=== PATIENT | male | born 1985 | race Caucasian/White ===

== ENCOUNTER 2020-01-03 17:54 | Emergency (ER) | payer OTHER ==
[~2020-01-03] VITALS: Ht 170.2 cm; Wt 125.0 kg
[2020-01-03 18:35] VITALS: BP 129/94
[2020-01-03] MEDS ORDERED: TAMIFLU 75MG75 MG PO (20:01)
[2020-01-03 20:05] VITALS: TEMP 100
[2020-01-03 20:36] VITALS: PULSE 111
== END 2020-01-03 20:36 | disposition home or self-care (01) ==
LOC: COL.ER 17:54
DX: J10.1 Influenza due to other identified influenza virus with other respiratory manifestations (principal)

== ENCOUNTER 2020-01-08 13:12 | Inpatient (IN) | payer OTHER ==
[2020-01-08] VITALS (122 sets, daily range): BP systolic 127–130; BP diastolic 74–97; PULSE 127–136; TEMP 98–98.2; O2SAT 67–100
[~2020-01-08] VITALS: Ht 170.2 cm; Wt 134.8 kg
[~2020-01-08 13:12] MED LIST: TAMIFLU 75MG75 MG PO
[2020-01-08 16:00] LABS: HEMATOCRIT 47.2 % (42.0-52.0); HEMOGLOBIN 16.2 g/dl (13.5-18.0); MEAN CELL VOLUME 86 fl (80.0-100.0); MEAN CORPUSCULAR HEMOGLOBIN 29 pg (27.0-31.0); MEAN CORPUSCULAR HGB CONC 34 g/dl (33.0-37.0); MEAN PLATELET VOLUME 12.1 fl (7.4-10.4); PLATELET COUNT 290 K/mm3 (130-400); RED BLOOD COUNT 5.51 M/mm3 (4.20-5.60); REDCELL DISTRIBUTION WIDTH-CV 13.5 % (11.5-14.5)
[2020-01-08 16:02] LABS: ALANINE AMINOTRANSFERASE 38 U/L (21-72); ALBUMIN 3.6 gm/dL (3.5-5.0); ALKALINE PHOSPHATASE 127 U/L (50-136); ANION GAP 17 mmol/L (7-16); AST,SGOT 113 U/L (15-37); BILIRUBIN,TOTAL 1.6 mg/dL (0.0-1.0); BLOOD UREA NITROGEN 42 mg/dL (9-20); CALCIUM 9.3 mg/dL (8.4-10.2); CARBON DIOXIDE 22 mmol/L (22-30); CHLORIDE 97 mmol/L (98-107); CREATININE, serum 2.52 (0.66-1.25); GLUCOSE 128 mg/dL (74-106); LIPASE 18 U/L (23-300); POTASSIUM 3.9 mmol/L (3.4-5.0); SODIUM 136 mmol/L (137-145); TOTAL PROTEIN 7.7 gm/dL (6.4-8.2)
[2020-01-08 16:20] LABS: TROPONIN-I < 0.012 ng/mL (0.000-0.035)
--- NOTE | 2020-01-08 17:40 | NUR ---
REPORT RECIEVED FROM MONAE ACSTRO FROM ED DEPT.
[2020-01-08 20:37] LABS: BAND 13 % (0-10); LYMPHOCYTE 11 % (20.0-51.0); NEUTROPHILS 76 % (42.0-75.2)
[2020-01-08 20:38] LABS: PLATELET ESTIMATE NORMAL (NORMAL)
[2020-01-08 20:40] LABS: TEAR DROP CELLS 1+
[2020-01-09] VITALS: BP 143/85; PULSE 122; TEMP 98.2
--- NOTE | 2020-01-09 03:48 | NUR ---
Report given to MATTHEW Gudino.
--- NOTE | 2020-01-09 03:50 | NUR ---
Bedside report received from MATTHEW Canas. Patient sitting up in chair watching TV. Requests more water, provided. Assessment complete with no changes from previous exams. Patient has complaints of the same 2/10 pain, but does not request any medication. Patient has no further needs at this time. Vitals remain stable. Will continue to monitor.
[2020-01-09 04:00] VITALS: BP 148/86; PULSE 119; TEMP 98.4
[2020-01-09 06:16] LABS: HEMATOCRIT 37.3 % (42.0-52.0); MEAN CELL VOLUME 89 fl (80.0-100.0); MEAN CORPUSCULAR HEMOGLOBIN 29 pg (27.0-31.0); MEAN CORPUSCULAR HGB CONC 33 g/dl (33.0-37.0); MEAN PLATELET VOLUME 11.7 fl (7.4-10.4); PLATELET COUNT 285 K/mm3 (130-400); REDCELL DISTRIBUTION WIDTH-CV 14.1 % (11.5-14.5)
[2020-01-09 06:20] LABS: HEMOGLOBIN 12.3 g/dl (13.5-18.0)
[2020-01-09 06:22] LABS: CALCIUM 7.7 mg/dL (8.4-10.2); CREATININE, serum 2.74 (0.66-1.25); POTASSIUM 3.6 mmol/L (3.4-5.0)
[2020-01-09 07:09] LABS: BAND 25 % (0-10); BURR CELLS 1+; LYMPHOCYTE 9 % (20.0-51.0); NEUTROPHILS 64 % (42.0-75.2); POIKILOCYTOSIS 1+
--- NOTE | 2020-01-09 07:10 | NUR ---
Bedside report given to MATTHEW De La Torre
[2020-01-09 08:00] VITALS: BP 128/87; PULSE 121; TEMP 99
[2020-01-09 12:00] VITALS: BP 115/84; PULSE 110; TEMP 98
--- NOTE | 2020-01-09 12:52 | NUR ---
PT ANXIOUS ABOUT PICC LINE AND LAYING IN BED. PRN ATIVAN ORDERED AND GIVEN. PT BECAME TACHYCARDIC DURING PICC LINE PLACEMENT. ONCE PICC LINE COMPLETED PT BACK TO CHAIR AND STATING STILL FEELING VERY ANXIOUS. PT STILL TACHYCARDIC UP TO 150'S OTHER VSS. NOTIFIED JONO GONZALEZ. ORDERS RECEIVED FOR ATIVAN AND EKG. EKG SHOWING AFIB. JONO GONZALEZ AND NOTIFIED. ORDER RECEIVED FOR IV METOPROLOL NOW AND ADDITONAL DOSE IN [address] CALLED TO HOLD OFF ON CHEST CT FOR NOW. PT UPDATED ON PLAN,
--- NOTE | 2020-01-09 13:14 | NUR ---
Vancomycin Initial Dosing Pharmacy Note Ordering provider: Rocío Dean MD Indication/duration: PNA, 7 days Relevant comorbidities: LABS: SCr 2.74, CrCl~44, GFR 27 Recommendation: Will start Vancomycin 2 gm IV q24h. Pharmacy will continue to monitor. Loading dose: 1 gram in the ED Maintenance dose: 2 grams every 24 hours Trough goal: 15-20 ug/mL
[2020-01-09 13:33] LABS: PH 5 (5-8); SQUAMOUS EPITHELIAL None Seen /hpf; URINE APPEARANCE Cloudy; URINE BACTERIA Rare /hpf; URINE BILIRUBIN Negative (NEGATIVE); URINE BLOOD 2+ (NEGATIVE); URINE COLOR Yellow; URINE GLUCOSE Negative (NEGATIVE); URINE KETONE Negative (NEGATIVE); URINE LEUKOCYTE ESTERASE Negative (NEGATIVE); URINE NITRATE Negative (NEGATIVE); URINE PROTEIN(semi-quant) 1+ (NEGATIVE); URINE UROBILINOGEN Negative (NEGATIVE)
--- NOTE | 2020-01-09 14:15 | NUR ---
Pt still afib 110-130's. Other VSS. Pt is asymptamatic. Renee GONZALEZ notified. Awaiting orders.
--- NOTE | 2020-01-09 14:19 | NUR ---
Plan: To return home with spouse in [facility] . Assessment: SW met with patient about care plans. Patient reports that he has his as care support. Patient denies the need for additional care. Patient reports his PCP as Tyrone Reyes. Patient indicated that he uses [facility] for RX and denies any DME use. Patient reports that he does not have a DPOA/ Patient reports that he will follow-up with primary care but does not anticipate any needs. Patient denies any care concerns. Action: SW educated patient on resources and supports. Nothing Follows.
--- NOTE | 2020-01-09 14:53 | NUR ---
Pt now afib in the 80-100's. Renee Ayala notified. Will continue to monitor.
--- NOTE | 2020-01-09 15:30 | NUR ---
CLARIFIED WITH JONO GONZALEZ AND REGARDING CT SCAN. THEY STATED OK TO SENT PT TO CT OFF MONITOR.
[2020-01-09 16:01] VITALS: BP 106/80; PULSE 101; TEMP 98.6
--- NOTE | 2020-01-09 16:51 | NUR ---
Pt going down to CT scan.
--- NOTE | 2020-01-09 16:57 | NUR ---
Renee GONZALEZ and notified of worsening VBG's. They will review.
[2020-01-09 18:00] LABS: COLLECTION METHOD CLEAN CATCH
[2020-01-09 20:00] VITALS: BP 139/86; PULSE 102; TEMP 98.2
[2020-01-10] VITALS: BP 134/83; PULSE 105; TEMP 98.4
[2020-01-10 04:00] VITALS: BP 120/72; PULSE 116; TEMP 98.6
[2020-01-10 05:15] LABS: BASO # 0.2 (0.0-0.2); BASO % 0.5 % (0.0-2.0); EOS % 0.1 % (0-4.0); GRAN # 26.9 (1.4-6.5); GRAN % 87.2 % (42.2-75.2); LYMPH # 1.8 (1.2-3.4); LYMPH % 5.9 % (20.0-51.0); MEAN CELL VOLUME 89 fl (80.0-100.0); MEAN CORPUSCULAR HEMOGLOBIN 29 pg (27.0-31.0); MEAN CORPUSCULAR HGB CONC 33 g/dl (33.0-37.0); MEAN PLATELET VOLUME 11.4 fl (7.4-10.4); MONO # 0.9 (0.1-0.6); MONO % 2.8 % (1.7-9.3); PLATELET COUNT 294 K/mm3 (130-400); RED BLOOD COUNT 4.12 M/mm3 (4.20-5.60); REDCELL DISTRIBUTION WIDTH-CV 14.2 % (11.5-14.5)
[2020-01-10 05:19] LABS: HEMATOCRIT 36.8 % (42.0-52.0)
[2020-01-10 05:36] LABS: CALCIUM 7.9 mg/dL (8.4-10.2); CREATININE, serum 1.93 (0.66-1.25); POTASSIUM 3.5 mmol/L (3.4-5.0); TOTAL PROTEIN 6.5 gm/dL (6.4-8.2)
--- NOTE | 2020-01-10 07:41 | NUR ---
Report received from Floresita CASTRO and care resumed.
--- NOTE | 2020-01-10 07:48 | NUR ---
Report given to MATTHEW Bautista.
[2020-01-10 08:00] VITALS: BP 153/99; PULSE 109; TEMP 97.8
[2020-01-10 10:39] LABS: ARTERIAL BLD GAS O2 SATURATION 97.1 % (92-100); ARTERIAL BLD GAS TCO2 CT 23.2; ARTERIAL BLOOD GAS BASE EXCESS -6.3 (-2-2); ARTERIAL BLOOD GAS HCO3 21.6 meq/L (22-26); ARTERIAL BLOOD GAS PCO2 52.4 mmHg (35-45); ARTERIAL BLOOD GAS PO2 97.7 mmHg (80-100); ARTERIAL BLOOD GAS pH 7.23 (7.35-7.45)
[2020-01-10 12:00] VITALS: BP 134/78; PULSE 109; TEMP 97.6
[2020-01-10 16:00] VITALS: BP 124/79; PULSE 104; TEMP 98.6
--- NOTE | 2020-01-10 19:00 | NUR ---
RECEIVED REPORT FROM MATTHEW GONZALES. PT SITTING UP IN RECLINER WATCHING TV. NO ACUTE S/S OF DISTRESS NOTED. PT ON 2L VIA NC. CALL LIGHT WITHIN REACH. VSS.
--- NOTE | 2020-01-10 19:29 | NUR ---
Report given to Yara CASTRO and care transfered.
[2020-01-10 20:00] VITALS: BP 157/88; PULSE 102; TEMP 98.2
[2020-01-11] VITALS: BP 145/90; PULSE 99; TEMP 98.3
--- NOTE | 2020-01-11 00:50 | NUR ---
PT STATES HE WOULD LIKE TO TRY THE BIPAP AT THIS TIME. RT NOTIFIED TO PLACE PT ON BIPAP.
[2020-01-11 04:00] VITALS: BP 137/88; PULSE 89; TEMP 98.2
[2020-01-11 05:14] LABS: MEAN CELL VOLUME 92 fl (80.0-100.0); MEAN CORPUSCULAR HGB CONC 32 g/dl (33.0-37.0); MEAN PLATELET VOLUME 10.9 fl (7.4-10.4); PLATELET COUNT 249 K/mm3 (130-400); RED BLOOD COUNT 3.45 M/mm3 (4.20-5.60); REDCELL DISTRIBUTION WIDTH-CV 14.6 % (11.5-14.5)
[2020-01-11 05:22] LABS: ALBUMIN 2.4 gm/dL (3.5-5.0); BILIRUBIN,TOTAL 1.3 mg/dL (0.0-1.0); CALCIUM 7.7 mg/dL (8.4-10.2); CREATININE, serum 1.07 (0.66-1.25); POTASSIUM 3.8 mmol/L (3.4-5.0); TOTAL PROTEIN 5.4 gm/dL (6.4-8.2)
[2020-01-11 05:25] LABS: HEMATOCRIT 31.7 % (42.0-52.0); MEAN CORPUSCULAR HEMOGLOBIN 29 pg (27.0-31.0)
[2020-01-11 06:14] LABS: BAND 12 % (0-10); EOSINOPHIL 1 % (0-4); LYMPHOCYTE 6 % (20.0-51.0); METAMYELOCYTE 6 % (0-0); NEUTROPHILS 73 % (42.0-75.2)
[2020-01-11 06:15] LABS: PLATELET ESTIMATE NORMAL (NORMAL)
--- NOTE | 2020-01-11 07:20 | NUR ---
Report received from Yara CASTRO and care resumed.
[2020-01-11 08:00] VITALS: BP 145/98; PULSE 102; TEMP 97.6
--- NOTE | 2020-01-11 09:40 | NUR ---
Dr Avina in to see pt at this time.
--- NOTE | 2020-01-11 10:32 | NUR ---
Dr Kirk in to see pt at this time.
--- NOTE | 2020-01-11 11:20 | NUR ---
[employer] REPA[employer] student attended clinical rounds with the team. The patient is to transfer to the medical floor this day.
[2020-01-11 13:01] VITALS: BP 132/90; PULSE 99; TEMP 97.9
--- NOTE | 2020-01-11 13:09 | NUR ---
Called PA regarding redness and warmth noted to right forearm. No pain, tenderness, swelling noted and PICC site looks within normal limits. No new orders at this time. Will continue to follow.
[2020-01-11 16:00] VITALS: BP 137/89; PULSE 100; TEMP 97.7
--- NOTE | 2020-01-11 19:30 | NUR ---
Received report from MATTHEW Bautista.
[2020-01-11 20:00] VITALS: BP 145/109; PULSE 98; TEMP 97.8
--- NOTE | 2020-01-11 20:40 | NUR ---
Patient transferred to [facility] room 15. Patient elected to walk; staff followed with wheelchair. Patient tolerated well. Slightly SOB upon arrival to room but denies any discomfort or pain. Will continue to monitor.
[2020-01-12] VITALS: BP 142/93; PULSE 105; TEMP 98.7
[2020-01-12 04:00] VITALS: BP 155/100; PULSE 101; TEMP 97.6
[2020-01-12 05:31] LABS: BASO # 0.1 (0.0-0.2); BASO % 0.5 % (0.0-2.0); EOS # 0.2 (0.0-0.7); EOS % 1.2 % (0-4.0); GRAN # 7.9 (1.4-6.5); GRAN % 55.1 % (42.2-75.2); HEMOGLOBIN 11.1 g/dl (13.5-18.0); LYMPH # 2.4 (1.2-3.4); LYMPH % 16.5 % (20.0-51.0); MEAN CELL VOLUME 91 fl (80.0-100.0); MEAN CORPUSCULAR HEMOGLOBIN 29 pg (27.0-31.0); MEAN CORPUSCULAR HGB CONC 32 g/dl (33.0-37.0); MEAN PLATELET VOLUME 10.3 fl (7.4-10.4); MONO # 1.3 (0.1-0.6); MONO % 8.8 % (1.7-9.3); PLATELET COUNT 322 K/mm3 (130-400); RED BLOOD COUNT 3.88 M/mm3 (4.20-5.60); REDCELL DISTRIBUTION WIDTH-CV 14.6 % (11.5-14.5)
[2020-01-12 05:33] LABS: HEMATOCRIT 35.2 % (42.0-52.0)
[2020-01-12 05:39] LABS: ALBUMIN 2.8 gm/dL (3.5-5.0); BILIRUBIN,TOTAL 1.3 mg/dL (0.0-1.0); CALCIUM 7.9 mg/dL (8.4-10.2); CREATININE, serum 1.05 (0.66-1.25); POTASSIUM 4.1 mmol/L (3.4-5.0); TOTAL PROTEIN 6.4 gm/dL (6.4-8.2)
--- NOTE | 2020-01-12 07:42 | NUR ---
Report given to MATTHEW Earl.
[2020-01-12 08:27] VITALS: BP 143/97; PULSE 104; TEMP 98.3
[2020-01-12 11:20] VITALS: BP 143/97; PULSE 70; TEMP 98.8
--- NOTE | 2020-01-12 12:47 | NUR ---
Vancomycin Follow-up Pharmacy Note Current regimen: Vancomycin 1.5 gm IV q8h Vancomycin trough: 21.99 Adjustments: Will hold dose to allow trough to clear, then restart with Vancomycin 1.25 gm IV q8h. Pharmacy will continue to monitor and check a Vancomycin trough prior to 4th new dose on 01/13/20.
[2020-01-12 16:37] VITALS: BP 145/89; PULSE 106; TEMP 99.4
[2020-01-12 20:00] VITALS: BP 147/91; PULSE 73; TEMP 99.7
--- NOTE | 2020-01-12 21:27 | NUR ---
PT IV ANTIBIOTICS FINISHED AND UNHOOKED FROM PT. PT ASSESSED AND RIGHT LUNG RIVERA COARSE. PT COUGHING AND REPORTING DIAHRREA WITH COUGHING. PT IV WRAPPED FOR SHOWER. NEW GOWN AND TOWELS BROUGHT IN AND NEW ISREAL PLACED ON CHAIR. ONCE PT WAS DONE WITH SHOWER, IV UNWRAPPED AND BIPAP PLACED ON PT. PT ONLY COMPLAINS OF PAIN WHEN HE INITIALLY SITS UP IN THE BED ON THE RIGHT SIDE AND THEN HE SAYS IT GOES AWAY. PT HAS NO OTHER NEEDS AT THIS TIME. TABLE AT BEDSIDE WITH CALL LIGHT WITHIN REACH.
[2020-01-13 00:10] VITALS: BP 159/102; PULSE 102; TEMP 99.9
[2020-01-13 04:00] VITALS: BP 134/77; PULSE 95; TEMP 98.7
--- NOTE | 2020-01-13 05:35 | NUR ---
PT HAD UNEVENTFUL SHIFT. TABLE, CALL LIGHT, AT BEDSIDE. R SIDE LUNG SOUNDS COARSE. PT DENIES ANY FURTHER NEEDS AT THIS TIME. INCONTINENT STOOL X1 BEFORE PT SHOWERED INDEPENDENTLY W/ PICC WRAPPED.
[2020-01-13 06:28] LABS: HEMOGLOBIN 10.4 g/dl (13.5-18.0); MEAN CELL VOLUME 92 fl (80.0-100.0); MEAN CORPUSCULAR HEMOGLOBIN 30 pg (27.0-31.0); MEAN CORPUSCULAR HGB CONC 32 g/dl (33.0-37.0); MEAN PLATELET VOLUME 10.6 fl (7.4-10.4); PLATELET COUNT 324 K/mm3 (130-400); RED BLOOD COUNT 3.53 M/mm3 (4.20-5.60); REDCELL DISTRIBUTION WIDTH-CV 14.6 % (11.5-14.5)
[2020-01-13 06:33] LABS: ALBUMIN 2.6 gm/dL (3.5-5.0); BILIRUBIN,TOTAL 0.8 mg/dL (0.0-1.0); CREATININE, serum 0.95 (0.66-1.25); POTASSIUM 3.9 mmol/L (3.4-5.0); TOTAL PROTEIN 5.9 gm/dL (6.4-8.2)
[2020-01-13 06:41] LABS: HEMATOCRIT 32.4 % (42.0-52.0)
[2020-01-13 07:21] LABS: BAND 19 % (0-10); LYMPHOCYTE 11 % (20.0-51.0); METAMYELOCYTE 6 % (0-0); MYELOCYTE 3 % (0-0); NEUTROPHILS 55 % (42.0-75.2)
[2020-01-13 07:22] LABS: HYPOCHROMIA 1+; PLATELET ESTIMATE NORMAL (NORMAL)
[2020-01-13 08:29] LABS: PATHOLOGY DIFF REVIEW OK
[2020-01-13 09:22] VITALS: BP 151/95; PULSE 110; TEMP 98.6
[2020-01-13 12:22] VITALS: BP 134/106; PULSE 113; TEMP 99.8
[2020-01-13] MEDS ORDERED: PROAIR HFA0.09 MG/AC IH (14:55)
[2020-01-13] MEDS ORDERED: VANCOCIN H125 MG/CAP PO (14:55)
[2020-01-13] MEDS ORDERED: LEVAQUIN 750MG750 M1 PO (14:56)
--- NOTE | 2020-01-13 17:28 | NUR ---
Pt PICC is being pulled by MATTHEW Bean (charge machine operator). After that is pulled, pt to discharge via WC with [facility] staff accompanied by spouse. No further concerns.
== END 2020-01-13 18:34 | disposition home or self-care (01) | DRG 871 ==
LOC: COL.ER 13:12 → ICU 16:24 → IMCU 01-11 21:16 → MEDICAL 01-12 12:28
PROVIDERS: Emergency Medicine; Internal Medicine Pulmonary Disease; Physician Assistant; Student in an Organized Health Care Education/Training Program; ADMIT Internal Medicine
PROC: 02HV33Z Insertion of Infusion Device into Superior Vena Cava, Percutaneous Approach (ICD-10-PCS; principal; 2020-01-09)
DX: A41.9 Sepsis, unspecified organism (principal); J10.08 Influenza due to other identified influenza virus with other specified pneumonia; J96.01 Acute respiratory failure with hypoxia; J18.1 Lobar pneumonia, unspecified organism; N17.9 Acute kidney failure, unspecified; E87.2 Acidosis; A04.72 Enterocolitis due to Clostridium difficile, not specified as recurrent; R65.20 Severe sepsis without septic shock; Z88.2 Allergy status to sulfonamides
CPT/HCPCS: 99222-AI; 99232-AI; 99233-AI; 99239; A4216; A9284; C1751; J0456; J0692; J0696; J1644; J2060; J2405; J2543; J3370; J3480; J7030; J7040; J7050; J7120